=== PATIENT | female | born 1985 | race Caucasian/White ===

== ENCOUNTER 2022-11-01 18:00 | Inpatient (IN) | payer BC ==
[2022-11-01] MEDS ORDERED: Ondansetron PF 4 MG/2 ML Vial IVP PRN (18:58)
[2022-11-01] MEDS ORDERED: Lidocaine 1% (PF) 30 ML VIAL SC PRN (18:58)
[2022-11-01] MEDS ORDERED: Ibuprofen 800 MG TAB PO PRN (18:58)
[2022-11-01] MEDS ORDERED: Carboprost 250 MCG/ML AMP IM PRN (18:58)
[2022-11-01] MEDS ORDERED: HYDROcodone/Acetaminophen 5/325 mg Tablet PO PRN (18:58)
[2022-11-01] MEDS ORDERED: Misoprostol 200 MCG TAB PR PRN (18:58)
[2022-11-01] MEDS ORDERED: Zolpidem Tartrate 5 MG TAB PO PRN (18:58)
[2022-11-01] MEDS ORDERED: Acetaminophen 500 MG TAB PO PRN (18:58)
[2022-11-01] MEDS ORDERED: Methylergonovine 0.2 MG/ML VIAL IM PRN (18:58)
[2022-11-01] MEDS ORDERED: Butorphanol Tartrate 1 MG/ML VIAL SLOW IVP PRN (18:58)
[2022-11-01] MEDS ORDERED: Promethazine HCl 25 MG/ML VIAL IM PRN (18:58)
[2022-11-01] MEDS ORDERED: hydrALAZINE 20 MG/ML VIAL SLOW IVP PRN (18:58)
[2022-11-01] MEDS ORDERED: Diphenoxylate HCl/Atropine Tablet PO PRN (18:58)
[2022-11-01] MEDS ORDERED: NS w/ Oxytocin 30 units 500 ML IV SCH ×2 (19:00)
[2022-11-01] MEDS ORDERED: Lactated Ringer's 1,000 ML IV SCH (19:00)
[2022-11-01] MEDS ORDERED: Misoprostol 100 MCG TAB VAG SCH (19:00)
[2022-11-01] MEDS ORDERED: Penicillin G Potassium 5 MILL.UNITS in Sodium Chloride 0.9% 100 ML IVPB SCH (19:00)
[2022-11-01 19:03] VITALS: BMI 30.9
[2022-11-01 19:15] LABS: Hemoglobin 11.4 g/dL (12.0-15.5); Mean Corpuscular HGB CONC 33.4 g/dL (32.0-36.0); Mean Corpuscular Volume 89.7 fl (81.6-98.3); Mean Platelet Volume 9.4 fl (7.4-10.4); Platelet Count 277 10x3/uL (150-450); RBC Distribution Width 15.6 % (11.5-14.5); White Blood Cell (WBC) Count 11.4 10x3/uL (3.5-10.5)
[2022-11-01] MEDS ORDERED: Penicillin G Potassium 5 MILL.UNITS VIAL ONE (19:28)
[2022-11-01 19:33] LABS: ALT (SGPT) 11 U/L (8-55); AST (SGOT) 16 U/L (5-34); Albumin 3.5 g/dL (3.5-5.0); Alkaline Phosphatase 139 U/L (40-110); Anion Gap 17 mmol/L (10-20); BUN (Urea Nitrogen) 8 mg/dL (7.0-18.7); Bilirubin, Total 0.6 mg/dL (0.2-1.2); Calc. Creatinine Clearance 155 mL/min (70-130); Calcium 8.8 mg/dL (7.8-10.44); Carbon Dioxide 19 mmol/L (22-29); Chloride 106 mmol/L (98-107); Estimated GFR 115; Glucose 102 mg/dL (70-105); Potassium 3.8 mmol/L (3.5-5.1); Protein, Total 6.5 g/dL (6.0-8.3); Sodium 138 mmol/L (136-145)
[2022-11-01] MEDS: Penicillin G 2.5 MILL.units 2.5 MILL.UNITS in Premix Bag 1 BAG IVPB SCH (23:30)
[2022-11-02 00:06] LABS: HBSAg Index 0.13 S/CO (0-0.99); Hep B Surf Ag - L&D Non-Reactive S/CO (NonReactive); Syphilis Antibody Nonreactive (Nonreactive); Syphilis Antibody Index 0.06 S/CO (<1.00 Non-Reactive)
[2022-11-02] MEDS: Penicillin G 2.5 MILL.units 2.5 MILL.UNITS in Premix Bag 1 BAG IVPB SCH ×3 (03:37→11:45)
[2022-11-02] MEDS ORDERED: Fentanyl 2 mcg/Bup 0.1% Cadd 100 ML ONE (07:46)
[2022-11-02] MEDS ORDERED: Lactated Ringer's 500 ML IV PRN (09:40)
[2022-11-02] MEDS ORDERED: Ondansetron PF 4 MG/2 ML Vial IVP PRN ×2 (09:40→16:31)
[2022-11-02] MEDS ORDERED: diphenhydrAMINE 50 MG/ML VIAL IVP PRN (09:40)
[2022-11-02] MEDS ORDERED: Moisturizing Cream (Eucerin) 113 GM JAR TOP PRN (09:40)
[2022-11-02] MEDS ORDERED: Naloxone HCl 0.4 mg/ml Vial IVP PRN ×2 (09:40)
[2022-11-02] MEDS ORDERED: ePHEDrine Sulfate 50 MG/10 ML VIAL SLOW IVP PRN (09:40)
[2022-11-02] MEDS ORDERED: Promethazine HCl 25 MG/ML VIAL IM PRN ×2 (09:40→16:31)
[2022-11-02] MEDS ORDERED: Acetaminophen 325 MG TAB PO PRN (09:40)
[2022-11-02] MEDS ORDERED: Communication Order-Pharmacy FS SCH (09:45)
[2022-11-02] MEDS ORDERED: Fentanyl 2 mcg/Bupivacaine 0.1% Cassette 100 ML EPIDURAL SCH (09:45)
[2022-11-02] MEDS ORDERED: hydrALAZINE 20 MG/ML VIAL SLOW IVP PRN (16:31)
[2022-11-02] MEDS ORDERED: Preparation H Ointment 28 GM TUBE PR PRN (16:31)
[2022-11-02] MEDS ORDERED: Bisacodyl 10 MG SUPP PR PRN (16:31)
[2022-11-02] MEDS ORDERED: Benzocaine-Menthol 82.5 ML CAN TOP PRN (16:31)
[2022-11-02] MEDS ORDERED: diphenhydrAMINE 25 MG CAP PO PRN (16:31)
[2022-11-02] MEDS ORDERED: Boostrix 0.5 ML (Tdap) VIAL (>/=7 yrs of age) IM ONE (16:31)
[2022-11-02] MEDS ORDERED: Lanolin Ointment 7 GM TUBE TOP PRN (16:31)
[2022-11-02] MEDS ORDERED: Milk Of Magnesia 30 ML UDCUP PO PRN (16:31)
[2022-11-02] MEDS ORDERED: HYDROcodone/Acetaminophen 5/325 mg Tablet PO PRN ×2 (16:31)
[2022-11-02] MEDS: Ferrous Sulfate 325 MG TAB PO SCH (19:10)
[2022-11-02] MEDS: Ibuprofen 800 MG TAB PO SCH (20:55)
[2022-11-02] MEDS: Docusate 100 MG CAP PO SCH (20:56)
[2022-11-03] MEDS: Ibuprofen 800 MG TAB PO SCH ×2 (04:53→13:28)
[2022-11-03] MEDS: Penicillin G 2.5 MILL.units 2.5 MILL.UNITS in Premix Bag 1 BAG IVPB SCH (07:33)
[2022-11-03] MEDS: Ferrous Sulfate 325 MG TAB PO SCH ×2 (08:15→14:31)
[2022-11-03] MEDS: Docusate 100 MG CAP PO SCH (08:16)
[2022-11-03] MEDS ORDERED: Prenatal Vitamin 1 TAB PO SCH (09:00)
[2022-11-03] MEDS ORDERED: Bupivacaine/Epinephrine 0.25% 30 ML VIAL ONE (14:00)
[2022-11-03 16:12] VITALS: BP 148/83; TEMP 97.6
== END 2022-11-03 17:30 | disposition home or self-care (01) | DRG 807 ==
LOC: CSHLD 18:01 → CSHPP 11-02 17:06
PROVIDERS: ADMIT Student in an Organized Health Care Education/Training Program; ATTEND Student in an Organized Health Care Education/Training Program
PROC: 10E0XZZ Delivery of Products of Conception, External Approach (ICD-10-PCS; principal; 2022-11-02)
PROC: 10907ZC Drainage of Amniotic Fluid, Therapeutic from Products of Conception, Via Natural or Artificial Opening (ICD-10-PCS; 2022-11-02)
DX: O14.04 Mild to moderate pre-eclampsia, complicating childbirth (principal); Z37.0 Single live birth; Z3A.37 37 weeks gestation of pregnancy; Z79.899 Other long term (current) drug therapy; J45.909 Unspecified asthma, uncomplicated; O99.52 Diseases of the respiratory system complicating childbirth; Z88.2 Allergy status to sulfonamides; Z88.8 Allergy status to other drugs, medicaments and biological substances; O99.824 Streptococcus B carrier state complicating childbirth; O69.81X0 Labor and delivery complicated by cord around neck, without compression, not applicable or unspecified
CPT/HCPCS: 51702; 80053; 85027; 86780; 86850; 86900; 86901; 87340; J2540; J2590; J3490